=== PATIENT | male | born 1945 | race Caucasian/White ===

== ENCOUNTER 2018-11-12 10:09 | Inpatient (IN) | payer MEDICARE, MEDICAID ==
[2018-11-07 16:19] LABS: BASOPHILS % (AUTO) 0.6 % (0-1); EOSINOPHILS # (AUTO) 0.3 X10'3 (0-0.9); EOSINOPHILS % (AUTO) 4.4 % (0-6); LYMPHOCYTES # (AUTO) 1.6 X10'3 (1.1-4.8); MONOCYTES # (AUTO) 0.8 X10'3 (0-0.9); MONOCYTES % (AUTO) 10.1 % (2-12); NEUTROPHILS # (AUTO) 5.1 X10'3 (1.8-7.7); NEUTROPHILS % (AUTO) 64.9 % (42-75); PRE OP HEMATOCRIT 42.4 % (42.0-52.0); PRE OP HEMOGLOBIN 14.4 g/dL (14.0-17.9); PRE OP PLATELET COUNT 229 X10'3 (140-440); RED BLOOD COUNT 4.37 X10'6 (4.70-6.10); RED CELL DISTRIBUTION WIDTH 13.9 % (11.5-14.5)
[2018-11-07 16:23] LABS: CLARITY,URINE CLEAR (Clear); COLOR,URINE YELLOW (Yellow); GLUCOSE, URINE NEGATIVE (Neg); KETONES,URINE NEGATIVE (Neg); LEUKOCYTE ESTERASE ,URINE NEGATIVE (Neg); NITRITES, URINE NEGATIVE (Neg); OCCULT BLOOD,URINE SMALL (Neg); PROTEIN,URINE TRACE mg/dl (Neg); UROBILINOGEN,URINE 0.2 E.U/dL (0.2-1.0)
[2018-11-07 16:24] LABS: UA COLLECTION TYPE CLN CATCH MIDSTREAM
[2018-11-07 16:30] LABS: MUCUS STRANDS FEW /LPF (Neg); SQUAMOUS EPITHELIAL CELL,UR MANY /LPF (FEW)
[2018-11-07 16:32] LABS: HYALINE CASTS 0-3 /LPF (NEGATIVE)
[2018-11-07 16:34] LABS: BACTERIA,URINE NONE SEEN /HPF (Neg); WBC,URINE 0-4 /HPF (0-4)
[2018-11-07 16:41] LABS: ALBUMIN 3.8 G/DL (3.4-5.0); ALBUMIN/GLOBULIN RATIO 0.8 (1.1-1.5); ALKALINE PHOSPHATASE 105 IU/L (46-116); BLOOD UREA NITROGEN 12 MG/DL (7-18); BUN/CREATININE RATIO 11.7 (5.4-32.0); CALCIUM 8.6 MG/DL (8.5-10.1); CHLORIDE 97 MMOL/L (99-107); CREATININE 1.03 MG/DL (0.60-1.10); PRE OP ALT 23 U/L (30-65); PRE OP ANION GAP 7 (8-16); PRE OP AST 19 U/L (10-37); PRE OP BILIRUB, TOTAL 0.8 MG/DL (0.0-1.0); PRE OP GLUCOSE 91 MG/DL (70-104); PRE OP SODIUM 134 MMOL/L (135-145); TOTAL PROTEIN 8.6 G/DL (6.4-8.2); eGFR 71 ML/MIN
[2018-11-07 17:16] LABS: PRE OP INR 1.1 INR; PRE OP PROTIME 11.1 SECONDS (9.0-12.0)
[2018-11-12] VITALS (27 sets, daily range): BP systolic 124–184; BP diastolic 61–96
[~2018-11-12] VITALS: Ht 182.9 cm; Wt 66.5 kg
[2018-11-12] MEDS: Potassium Cl inj 20 MEQ in ringers solution, lacted 1,000 ML IV SCH ×2 (08:47→16:52)
[~2018-11-12 10:09] MED LIST: CLOP75TA15 PO; EPHE1TAB PO; FLUT1BLS3 INH; GABA-530 PO; GUAI600T45 PO; IPRA4AER IH; ROPI1TAB2 PO; albuterol 2.5 MG/3 ML nebule NEB ONE; cefazolin/dext.iso 2gm/100 ML IV ONE; famotidine 20mg tablet PO ONE
[2018-11-12] MEDS ORDERED: LIDOcaine 1% (10mg/ml) 2ml vial ONE (10:16)
[2018-11-12] MEDS ORDERED: heparin 10,000 units/1 ML INJ ONE (10:36)
[2018-11-12] MEDS ORDERED: ceFAZolin 1000mg inj ONE (10:36)
[2018-11-12] MEDS: ringers solution, lacted 1,000 ML IV SCH ×4 (10:36→17:22)
[2018-11-12] MEDS ORDERED: fentaNYL /PF 50mcg/ml 5ml ampule ONE (11:47)
[2018-11-12] MEDS ORDERED: rocuronium 10mg/ml inj IV ONE (11:47)
[2018-11-12] MEDS ORDERED: MIDAZolam 5mg/5ml vial ONE (11:47)
[2018-11-12] MEDS ORDERED: propofol inj 20 ML IV ONE (11:47)
[2018-11-12] MEDS ORDERED: sevoflurane 250ml liquid IH ONE (11:48)
[2018-11-12] MEDS ORDERED: ePHEDrine 50MG/ML INJ. ONE (12:34)
[2018-11-12] MEDS ORDERED: heparin 1,000unit/ml 10ml vial 10 ML ONE (12:34)
[2018-11-12] MEDS ORDERED: ringers solution, lacted 1,000 ML IV SCH (13:46)
[2018-11-12] MEDS ORDERED: meperidine/PF 25mg/ml syringe IV PRN ×2 (13:50)
[2018-11-12] MEDS ORDERED: ondansetron/PF 4mg/2ml inj IV PRN ×3 (13:50→17:50)
[2018-11-12] MEDS ORDERED: morphine 4 MG/ML inj SYRINge IV PRN ×3 (13:50→17:55)
[2018-11-12] MEDS ORDERED: proCHLORperazine 10 MG/2 ml inj IV PRN (13:50)
[2018-11-12] MEDS ORDERED: neostigmine methylsulfate 1 MG/ML 10ml vial ONE (13:56)
[2018-11-12] MEDS ORDERED: glycopyrrolate 0.2mg/ml inj ONE (13:56)
[2018-11-12] MEDS ORDERED: labetalol 20mg/4ml (5mg/ml) syringe IV ONE (13:59)
--- NOTE | 2018-11-12 14:20 | NUR ---
Received from OR via BED, accompanied by Anesthesiologist DR MANUEL and report given by Anesthesiolgist. PATIENT A&OX4, DENIES PAIN, V/S WNL, NEUROVASCULAR CHECKS INTACT, 20G PIV RUE, SCD ON, PROVENA DRESSING LEFT GROIN CDI AND ISLAND DRESSING TO ABDOMEN CDI, ART LINE TO RUE, CENTRAL LINE TO RIGHT NECK TRIPLE LUMEN, F/C DRAINIANG CLEAR YELLOW URINE.
[2018-11-12] MEDS: meperidine/PF 25mg/ml syringe IV PRN ×2 (14:30→15:27)
[2018-11-12] MEDS ORDERED: guaiFENesin ER 600mg tablet PO PRN (14:40)
[2018-11-12] MEDS ORDERED: ipratropium/albuterol 3ml nebule IH PRN (14:50)
[2018-11-12] MEDS: albuterol 2.5 MG/3 ML nebule NEB SCH ×2 (15:00→19:59)
--- NOTE | 2018-11-12 16:30 | NUR ---
PATIENT WAKES UP, ORIENTED X3, DENIES PAIN, V/S WNL, NEUROVASCULAR CHECKS INTACT, 20G PIV RUE, SCD ON, PROVENA DRESSING LEFT GROIN CDI AND ISLAND DRESSING TO ABDOMEN CDI, ART LINE TO RUE, CENTRAL LINE TO RIGHT NECK TRIPLE LUMEN, F/C DRAINING CLEAR YELLOW URINE. TRANSFERED TO ICU WITH ALL BELONGINGS AND REPORT GIVEN TO IMAGING SCIENCE PROFESSOR WHO HAS TAKEN OVER PATIENT CARE.
[2018-11-12] MEDS: morphine 4 MG/ML inj SYRINge IV PRN ×2 (16:49→20:58)
[2018-11-12] MEDS: ceFAZolin 1GM/D5W- ADD-VANTAGE 50 ML IV SCH (16:49)
[2018-11-12] MEDS ORDERED: hydrALAZINE 20mg/ml inj. IV PRN (17:15)
--- NOTE | 2018-11-12 17:44 | NUR ---
Received patient from recovery. Vital signs stable, pt. painful. Addendum: 11/12/18 at 1745 by Xi Moeller RN at 1630
[2018-11-12] MEDS ORDERED: HYDROcodone/acetaminophen 10/325mg tab PO PRN (17:55)
[2018-11-12] MEDS: HYDROcodone/acetaminophen 10/325mg tab PO PRN (19:24)
[2018-11-12] MEDS: budesonide 0.5mg/2ml UD nebule IH SCH (19:59)
[2018-11-12] MEDS: hydrALAZINE 20mg/ml inj. IV PRN (20:27)
[2018-11-12] MEDS: gabapentin 100mg capsule PO SCH (20:30)
[2018-11-12] MEDS: ROPINIRole 1mg tablet PO SCH (20:30)
[2018-11-12] MEDS: ondansetron/PF 4mg/2ml inj IV PRN (20:58)
[2018-11-13] VITALS (16 sets, daily range): BP systolic 116–179; BP diastolic 60–92
[2018-11-13] MEDS: ceFAZolin 1GM/D5W- ADD-VANTAGE 50 ML IV SCH ×2 (00:08→07:26)
[2018-11-13] MEDS: ringers solution, lacted 1,000 ML IV SCH ×4 (03:23→20:27)
[2018-11-13] MEDS: morphine 4 MG/ML inj SYRINge IV PRN ×5 (03:25→23:35)
[2018-11-13 05:21] LABS: BASOPHILS % (AUTO) 0.1 % (0-1); EOSINOPHILS # (AUTO) 0.1 X10'3 (0-0.9); EOSINOPHILS % (AUTO) 0.8 % (0-6); HEMOGLOBIN 12.8 g/dl (14.0-17.9); LYMPHOCYTES % (AUTO) 9.2 % (21-51); MEAN CORPUSCULAR HEMOGLOBIN 33.2 PG (27.0-31.0); MEAN CORPUSCULAR HGB CONC 34.7 g/dL (33.0-36.5); MEAN CORPUSCULAR VOLUME 95.7 FL (78-98); MEAN PLATELET VOLUME 6.7 FL (7.4-10.4); MONOCYTES # (AUTO) 1.2 X10'3 (0-0.9); MONOCYTES % (AUTO) 10.5 % (2-12); NEUTROPHILS # (AUTO) 8.7 X10'3 (1.8-7.7); NEUTROPHILS % (AUTO) 79.4 % (42-75); PLATELET COUNT 173 X10'3 (140-440); RED BLOOD COUNT 3.87 X10'6 (4.70-6.10); RED CELL DISTRIBUTION WIDTH 12.9 % (11.5-14.5)
[2018-11-13 05:34] LABS: ALBUMIN 3.1 G/DL (3.4-5.0); ANION GAP 8 (8-16); BLOOD UREA NITROGEN 13 MG/DL (7-18); BUN/CREATININE RATIO 14.8 (5.4-32.0); CALCIUM 7.9 MG/DL (8.5-10.1); CHLORIDE 95 MMOL/L (99-107); CREATININE 0.88 MG/DL (0.60-1.10); GLUCOSE 112 MG/DL (70-104); SODIUM 130 MMOL/L (135-145); eGFR 85 ML/MIN
[2018-11-13] MEDS: hydrALAZINE 20mg/ml inj. IV PRN (06:40)
[2018-11-13] MEDS: budesonide 0.5mg/2ml UD nebule IH SCH ×2 (06:58→20:15)
[2018-11-13] MEDS: albuterol 2.5 MG/3 ML nebule NEB SCH ×4 (06:58→20:15)
[2018-11-13] MEDS: ondansetron/PF 4mg/2ml inj IV PRN ×2 (07:26→18:50)
[2018-11-13] MEDS: clopidogrel 75mg tablet PO SCH (07:29)
[2018-11-13] MEDS: enoxaparin 40mg/0.4ml syringe SQ SCH (07:29)
[2018-11-13] MEDS: EPHEDRINE SULFATE PO SCH (07:47)
[2018-11-13] MEDS: GUAIFENESIN PO SCH (07:47)
[2018-11-13] MEDS ORDERED: non-formulary drug (Fluticasone/Vilanterol (Breo Ellipta 200-25 Mcg INH) 1 PUFF) INH SCH (08:00)
[2018-11-13] MEDS: HYDROcodone/acetaminophen 10/325mg tab PO PRN ×3 (10:47→21:29)
[2018-11-13] MEDS ORDERED: pantoprazole 40mg Tablet.DR PO ONE (11:00)
--- NOTE | 2018-11-13 12:20 | NUR ---
ART line and CVL d/c per hospital policy without incident. Hemostasis achieved. Teresa d/c per MD order.
--- NOTE | 2018-11-13 13:00 | NUR ---
Pt s/p AVR will need high protein ed once stable post-op. Addendum: 11/13/18 at [address] Amended: Links added.
--- NOTE | 2018-11-13 13:45 | NUR ---
Problems reprioritized. Patient report given, questions answered & plan of care reviewed with Eunice MANLEY. Patient transferred to surgical floor 348NB will all belongings sent with patient. Family and SO at bedside. Patient oriented to new room, TV and call light.
--- NOTE | 2018-11-13 13:50 | NUR ---
Patient arrived to 348B with family at bedside. Patient arrived in a recliner chair. Patient stable and alert. I will continue to monitor
--- NOTE | 2018-11-13 17:30 | NUR ---
PATIENT HAS NOT VOIDED SINCE THE BECK CATH WAS REMOVED. I BLADDER SCANNED HIM AND HE HAD 308 IN HIS BLADDER. I CALLED DR. ALONSO AND GOT AN ORDER TO PLACE A BECK AND LEAVE IT IN. I REPORTED THIS INFORMATION TO THE NOC RN.
--- NOTE | 2018-11-13 18:10 | NUR ---
Problems reprioritized. Patient report given, MACKENZIE MANLEY questions answered & plan of care reviewed with . PATIENT IN BED RESTING WITH FAMILY AT BEDSIDE.
--- NOTE | 2018-11-13 20:18 | NUR ---
Teresa Cath place tonight for acute retention. Patient tolerated well under sterile technique. Return 300ml of clear yellow urine.
[2018-11-13] MEDS: gabapentin 100mg capsule PO SCH (21:28)
[2018-11-13] MEDS: ROPINIRole 1mg tablet PO SCH (21:28)
[2018-11-14] VITALS: BP 142/73
[2018-11-14] MEDS: HYDROcodone/acetaminophen 10/325mg tab PO PRN ×2 (03:49→22:32)
[2018-11-14] MEDS: ringers solution, lacted 1,000 ML IV SCH ×3 (03:51→21:13)
[2018-11-14] MEDS: ondansetron/PF 4mg/2ml inj IV PRN ×2 (04:43→10:52)
[2018-11-14] MEDS: morphine 4 MG/ML inj SYRINge IV PRN ×3 (04:44→20:11)
[2018-11-14 05:49] LABS: BASOPHILS % (AUTO) 0 % (0-1); EOSINOPHILS % (AUTO) 0 % (0-6); HEMATOCRIT 33.8 % (42.0-52.0); HEMOGLOBIN 11.4 g/dl (14.0-17.9); LYMPHOCYTES # (AUTO) 0.8 X10'3 (1.1-4.8); LYMPHOCYTES % (AUTO) 5.3 % (21-51); MEAN CORPUSCULAR HEMOGLOBIN 32.7 PG (27.0-31.0); MEAN CORPUSCULAR HGB CONC 33.9 g/dL (33.0-36.5); MEAN CORPUSCULAR VOLUME 96.4 FL (78-98); MEAN PLATELET VOLUME 6.9 FL (7.4-10.4); MONOCYTES # (AUTO) 1.3 X10'3 (0-0.9); MONOCYTES % (AUTO) 8.6 % (2-12); NEUTROPHILS # (AUTO) 13.2 X10'3 (1.8-7.7); NEUTROPHILS % (AUTO) 86.1 % (42-75); PLATELET COUNT 171 X10'3 (140-440); WHITE BLOOD COUNT 15.3 X10'3 (4.5-11.0)
[2018-11-14 05:50] LABS: ALBUMIN 2.6 G/DL (3.4-5.0); ANION GAP 6 (8-16); BLOOD UREA NITROGEN 29 MG/DL (7-18); BUN/CREATININE RATIO 36.3 (5.4-32.0); CALCIUM 7.7 MG/DL (8.5-10.1); CHLORIDE 95 MMOL/L (99-107); GLUCOSE 133 MG/DL (70-104); SODIUM 131 MMOL/L (135-145); eGFR > 90 ML/MIN
[2018-11-14 07:00] VITALS: BP 138/64
[2018-11-14] MEDS: albuterol 2.5 MG/3 ML nebule NEB SCH ×4 (07:08→20:33)
[2018-11-14] MEDS: budesonide 0.5mg/2ml UD nebule IH SCH ×2 (07:08→20:33)
[2018-11-14] MEDS: enoxaparin 40mg/0.4ml syringe SQ SCH (07:38)
[2018-11-14] MEDS: clopidogrel 75mg tablet PO SCH (07:38)
[2018-11-14] MEDS: pantoprazole 40mg Tablet.DR PO SCH (07:38)
[2018-11-14] MEDS: EPHEDRINE SULFATE PO SCH ×2 (07:39→09:56)
[2018-11-14] MEDS: GUAIFENESIN PO SCH ×2 (07:39→09:56)
[2018-11-14 12:00] VITALS: BP 125/62
--- NOTE | 2018-11-14 18:39 | NUR ---
1500 SVN treatment triaged
[2018-11-14 19:00] VITALS: BP 102/51
[2018-11-14] MEDS: gabapentin 100mg capsule PO SCH (21:14)
[2018-11-14] MEDS: ROPINIRole 1mg tablet PO SCH (21:14)
[2018-11-15] VITALS: BP 141/63
[2018-11-15] MEDS: morphine 4 MG/ML inj SYRINge IV PRN (05:22)
[2018-11-15] MEDS: ringers solution, lacted 1,000 ML IV SCH (05:25)
--- NOTE | 2018-11-15 06:28 | NUR ---
Problems reprioritized. Patient report given, questions answered & plan of care reviewed with ISAC MANLEY.
[2018-11-15 07:02] LABS: BASOPHILS % (AUTO) 0.2 % (0-1); EOSINOPHILS % (AUTO) 0.4 % (0-6); HEMATOCRIT 28.7 % (42.0-52.0); HEMOGLOBIN 9.8 g/dl (14.0-17.9); LYMPHOCYTES # (AUTO) 0.8 X10'3 (1.1-4.8); LYMPHOCYTES % (AUTO) 7.7 % (21-51); MEAN CORPUSCULAR HEMOGLOBIN 33.3 PG (27.0-31.0); MEAN CORPUSCULAR HGB CONC 34.1 g/dL (33.0-36.5); MEAN CORPUSCULAR VOLUME 97.7 FL (78-98); MEAN PLATELET VOLUME 7.1 FL (7.4-10.4); MONOCYTES # (AUTO) 1.2 X10'3 (0-0.9); MONOCYTES % (AUTO) 11.8 % (2-12); NEUTROPHILS # (AUTO) 8.2 X10'3 (1.8-7.7); NEUTROPHILS % (AUTO) 79.9 % (42-75); PLATELET COUNT 136 X10'3 (140-440); RED BLOOD COUNT 2.94 X10'6 (4.70-6.10); RED CELL DISTRIBUTION WIDTH 13.6 % (11.5-14.5); WHITE BLOOD COUNT 10.2 X10'3 (4.5-11.0)
[2018-11-15 07:10] LABS: ALBUMIN 2.5 G/DL (3.4-5.0); ANION GAP 6 (8-16); BLOOD UREA NITROGEN 15 MG/DL (7-18); BUN/CREATININE RATIO 18.3 (5.4-32.0); CALCIUM 7.9 MG/DL (8.5-10.1); CHLORIDE 97 MMOL/L (99-107); CREATININE 0.82 MG/DL (0.60-1.10); GLUCOSE 100 MG/DL (70-104); POTASSIUM 3.6 MMOL/L (3.5-5.1); SODIUM 133 MMOL/L (135-145); TOTAL CARBON DIOXIDE 30.1 MMOL/L (24-32); eGFR > 90 ML/MIN
[2018-11-15] MEDS: budesonide 0.5mg/2ml UD nebule IH SCH ×2 (07:43→20:00)
[2018-11-15] MEDS: albuterol 2.5 MG/3 ML nebule NEB SCH ×4 (07:43→20:00)
[2018-11-15 08:00] VITALS: BP 151/87
[2018-11-15] MEDS: EPHEDRINE SULFATE PO SCH (08:00)
[2018-11-15] MEDS: GUAIFENESIN PO SCH (08:00)
[2018-11-15] MEDS: enoxaparin 40mg/0.4ml syringe SQ SCH (08:19)
[2018-11-15] MEDS: pantoprazole 40mg Tablet.DR PO SCH (08:19)
[2018-11-15] MEDS: clopidogrel 75mg tablet PO SCH (08:19)
[2018-11-15] MEDS: HYDROcodone/acetaminophen 10/325mg tab PO PRN ×4 (08:26→23:27)
[2018-11-15 12:00] VITALS: BP 155/77
--- NOTE | 2018-11-15 18:19 | NUR ---
Problems reprioritized. Patient report given, questions answered & plan of care reviewed with Joce MANLEY.
--- NOTE | 2018-11-15 18:20 | NUR ---
Patient in room [facility]. I have received report from ISAC MANLEY and had the opportunity to ask questions and assume patient care.
[2018-11-15 19:00] VITALS: BP 125/62
[2018-11-15] MEDS: gabapentin 100mg capsule PO SCH (21:09)
[2018-11-15] MEDS: ROPINIRole 1mg tablet PO SCH (21:09)
[2018-11-16] VITALS: BP 103/59
[2018-11-16 05:18] LABS: BASOPHILS % (AUTO) 0.2 % (0-1); EOSINOPHILS # (AUTO) 0.3 X10'3 (0-0.9); EOSINOPHILS % (AUTO) 3.4 % (0-6); HEMATOCRIT 28.1 % (42.0-52.0); HEMOGLOBIN 9.8 g/dl (14.0-17.9); LYMPHOCYTES # (AUTO) 0.8 X10'3 (1.1-4.8); MEAN CORPUSCULAR HEMOGLOBIN 33.5 PG (27.0-31.0); MEAN CORPUSCULAR HGB CONC 34.8 g/dL (33.0-36.5); MEAN CORPUSCULAR VOLUME 96.2 FL (78-98); MEAN PLATELET VOLUME 6.8 FL (7.4-10.4); MONOCYTES % (AUTO) 11.6 % (2-12); NEUTROPHILS # (AUTO) 6.3 X10'3 (1.8-7.7); NEUTROPHILS % (AUTO) 74.8 % (42-75); PLATELET COUNT 165 X10'3 (140-440); RED BLOOD COUNT 2.92 X10'6 (4.70-6.10); RED CELL DISTRIBUTION WIDTH 13.4 % (11.5-14.5); WHITE BLOOD COUNT 8.4 X10'3 (4.5-11.0)
[2018-11-16 05:23] LABS: ALBUMIN 2.5 G/DL (3.4-5.0); ANION GAP 6 (8-16); BLOOD UREA NITROGEN 10 MG/DL (7-18); CHLORIDE 93 MMOL/L (99-107); CREATININE 0.91 MG/DL (0.60-1.10); GLUCOSE 96 MG/DL (70-104); POTASSIUM 3.5 MMOL/L (3.5-5.1); SODIUM 131 MMOL/L (135-145); TOTAL CARBON DIOXIDE 31.7 MMOL/L (24-32); eGFR 82 ML/MIN
[2018-11-16] MEDS: ringers solution, lacted 1,000 ML IV SCH (05:44)
[2018-11-16] MEDS: HYDROcodone/acetaminophen 10/325mg tab PO PRN ×5 (05:59→23:05)
--- NOTE | 2018-11-16 06:15 | NUR ---
Problems reprioritized. Patient report given, questions answered & plan of care reviewed with ISAC MANLEY.
--- NOTE | 2018-11-16 06:39 | NUR ---
Problems reprioritized. Patient report given, questions answered & plan of care reviewed with Joce MANLEY.
[2018-11-16 08:00] VITALS: BP_SYST 145; BP_SYST 148; BP_DIAS 69; BP_DIAS 81
[2018-11-16] MEDS: GUAIFENESIN PO SCH (08:00)
[2018-11-16] MEDS: EPHEDRINE SULFATE PO SCH (08:00)
[2018-11-16] MEDS: pantoprazole 40mg Tablet.DR PO SCH (08:05)
[2018-11-16] MEDS: clopidogrel 75mg tablet PO SCH (08:05)
[2018-11-16] MEDS: enoxaparin 40mg/0.4ml syringe SQ SCH (08:06)
[2018-11-16] MEDS: budesonide 0.5mg/2ml UD nebule IH SCH ×2 (08:38→19:18)
[2018-11-16] MEDS: albuterol 2.5 MG/3 ML nebule NEB SCH ×4 (08:38→19:18)
--- NOTE | 2018-11-16 13:38 | NUR ---
O2 Sat at rest on room air: 88% If below 89%: Recovery O2 Sat at rest on 2 LPM: 90%: 94% via nasal cannula No further documentation is necessary. If O2 Sat did not drop below 89% on room air,ambulate patient on room air. O2 Sat while ambulating on room air:___% Recovery O2 Sat while ambulating on ___LPM:___% No further documentation is necessary. If patient does not drop below 89% while ambulating, he/she does not qualify for home O2.
--- NOTE | 2018-11-16 18:34 | NUR ---
Problems reprioritized. Patient report given, questions answered & plan of care reviewed with Preeti MANLEY.
--- NOTE | 2018-11-16 18:55 | NUR ---
Pt family in room states pt had 3 bites of Big Mac. Explained to family that food cannot be brought in as pt is on special diet due to surgery. Family states he is not the one who brought it in. Explained to pt and family the importance of adhering to diet.
[2018-11-16 20:00] VITALS: BP 115/62
[2018-11-16] MEDS: ROPINIRole 1mg tablet PO SCH (20:27)
[2018-11-16] MEDS: gabapentin 100mg capsule PO SCH (20:27)
--- NOTE | 2018-11-16 20:44 | NUR ---
Removed prevena from pt left leg. Attempted to seal dressing with tegaderm. Prevena would not seal. Removed and placed border [facility]. Will continue to monitor for drainage.
--- NOTE | 2018-11-16 23:13 | NUR ---
Dressing change to left groin site.
[2018-11-17] VITALS (8 sets, daily range): BP systolic 116–160; BP diastolic 65–79
[2018-11-17 05:12] LABS: BASOPHILS % (AUTO) 0.6 % (0-1); EOSINOPHILS # (AUTO) 0.5 X10'3 (0-0.9); EOSINOPHILS % (AUTO) 7.5 % (0-6); HEMATOCRIT 27.3 % (42.0-52.0); HEMOGLOBIN 9.4 g/dl (14.0-17.9); LYMPHOCYTES # (AUTO) 0.9 X10'3 (1.1-4.8); LYMPHOCYTES % (AUTO) 13.4 % (21-51); MEAN CORPUSCULAR HEMOGLOBIN 33.4 PG (27.0-31.0); MEAN CORPUSCULAR HGB CONC 34.3 g/dL (33.0-36.5); MEAN CORPUSCULAR VOLUME 97.3 FL (78-98); MEAN PLATELET VOLUME 6.8 FL (7.4-10.4); MONOCYTES % (AUTO) 15.1 % (2-12); NEUTROPHILS # (AUTO) 4.2 X10'3 (1.8-7.7); NEUTROPHILS % (AUTO) 63.4 % (42-75); PLATELET COUNT 189 X10'3 (140-440); RED CELL DISTRIBUTION WIDTH 13.3 % (11.5-14.5); WHITE BLOOD COUNT 6.7 X10'3 (4.5-11.0)
[2018-11-17] MEDS: HYDROcodone/acetaminophen 10/325mg tab PO PRN ×2 (05:23→20:19)
--- NOTE | 2018-11-17 05:24 | NUR ---
Pt c/o right great toe pain. Distal toe appears purple and is cooler than remaining toes and foot. Dopplered pulses, both posterial tibial and dorsalis pedis pulses strong. Administered pain medicaiton and advised pt to preform movements with the foot. Will continue to monitor.
[2018-11-17 05:25] LABS: ALBUMIN 2.4 G/DL (3.4-5.0); ANION GAP 4 (8-16); BLOOD UREA NITROGEN 9 MG/DL (7-18); BUN/CREATININE RATIO 9.9 (5.4-32.0); CALCIUM 7.8 MG/DL (8.5-10.1); CHLORIDE 95 MMOL/L (99-107); CREATININE 0.91 MG/DL (0.60-1.10); GLUCOSE 90 MG/DL (70-104); POTASSIUM 3.6 MMOL/L (3.5-5.1); SODIUM 133 MMOL/L (135-145); TOTAL CARBON DIOXIDE 34.1 MMOL/L (24-32); eGFR 82 ML/MIN
[2018-11-17] MEDS: albuterol 2.5 MG/3 ML nebule NEB SCH ×4 (05:32→19:28)
[2018-11-17] MEDS: budesonide 0.5mg/2ml UD nebule IH SCH ×2 (05:32→19:28)
--- NOTE | 2018-11-17 06:20 | NUR ---
Patient in room [facility] 348. I have received report from Preeti Goldstein RN and had the opportunity to ask questions and assume patient care.
--- NOTE | 2018-11-17 06:28 | NUR ---
Problems reprioritized. Patient report given, questions answered & plan of care reviewed with SINDHU Lott.
[2018-11-17] MEDS: pantoprazole 40mg Tablet.DR PO SCH (07:57)
[2018-11-17] MEDS: enoxaparin 40mg/0.4ml syringe SQ SCH (07:57)
[2018-11-17] MEDS: clopidogrel 75mg tablet PO SCH (07:57)
[2018-11-17] MEDS: GUAIFENESIN PO SCH (11:36)
[2018-11-17] MEDS: EPHEDRINE SULFATE PO SCH (11:36)
--- NOTE | 2018-11-17 11:43 | NUR ---
O2 Sat at rest on room air: 86% If below 89%: Recovery O2 Sat at rest on 3 LPM 94% via Nasal cannula (mask/nasal cannula, etc..) No further documentation is necessary.
[2018-11-17] MEDS ORDERED: magnesium hydroxide 30ml (MOM) UD suspension PO PRN (15:20)
--- NOTE | 2018-11-17 18:18 | NUR ---
Problems reprioritized. Patient report given, questions answered & plan of care reviewed with Nohelia RN.
--- NOTE | 2018-11-17 18:30 | NUR ---
Patient in room [facility] 348. I have received report from SINDHU Johnson and had the opportunity to ask questions and assume patient care.
[2018-11-17] MEDS: gabapentin 100mg capsule PO SCH (21:10)
[2018-11-17] MEDS: ROPINIRole 1mg tablet PO SCH (21:10)
[2018-11-18] MEDS: HYDROcodone/acetaminophen 10/325mg tab PO PRN ×3 (01:52→13:19)
--- NOTE | 2018-11-18 06:25 | NUR ---
Patient in room [facility] 348. I have received report from SINDHU Pozo and had the opportunity to ask questions and assume patient care.
--- NOTE | 2018-11-18 06:30 | NUR ---
report given to SINDHU Johnson
[2018-11-18 07:00] VITALS: BP 126/72
--- NOTE | 2018-11-18 07:00 | NUR ---
O2 Sat at rest on room air: 84% If below 89%: Recovery O2 Sat at rest on 3 LPM 94% via nasal cannula(mask/nasal cannula, etc..) No further documentation is necessary.
[2018-11-18] MEDS: albuterol 2.5 MG/3 ML nebule NEB SCH ×3 (07:19→15:08)
[2018-11-18] MEDS: budesonide 0.5mg/2ml UD nebule IH SCH (07:19)
[2018-11-18] MEDS: pantoprazole 40mg Tablet.DR PO SCH (07:55)
[2018-11-18] MEDS: enoxaparin 40mg/0.4ml syringe SQ SCH (07:56)
[2018-11-18] MEDS: EPHEDRINE SULFATE PO SCH (07:56)
[2018-11-18] MEDS: GUAIFENESIN PO SCH (07:56)
[2018-11-18] MEDS: clopidogrel 75mg tablet PO SCH (07:56)
[2018-11-18 11:00] VITALS: BP 119/65
--- NOTE | 2018-11-18 14:36 | NUR ---
Initial: Pt s/p left aortofemoral bypass graft seen at bedside given written and verbal protein education with RD contact information. Pt endorses a good appetite and denies food allergies, difficulty chewing/swallowing, or constipation/diarrhea. Documented PO intake averaging 50% on low fiber/soft diet. Pt agreeable to chocolate Ensure with meals, MD king, d/w dietary. [facility] 11/18. Will continue to follow. Recommendations: 1) Continue with low fiber/soft diet; advance to regular as medically indicated 2) Chocolate Ensure high protein TID 3) Wt per rx Addendum: 11/18/18 at [address] Amended: Links added.
--- NOTE | 2018-11-18 17:35 | NUR ---
Patient discharged. PIV removed: cath tip intact. Extensive education given to patient and regarding the home wound vac. I reinforced his Prevena dressing and gave his the extra to reinforce if she needs to. Patient will follow up with Dr. Carter in one week. Patient was also provided with home O2. Patient was wheeled down by staff.
[2018-11-18] MEDS ORDERED: lactose-reduced food (Ensure High Protein) 237ml bottle PO SCH (18:00)
== END 2018-11-18 17:37 | disposition home health service (06) | DRG 271 ==
LOC: PAS 10:09 → EDSTATUS 14:00 → ICU 2S 17:44 → PAS 17:44 → ICU 2S 17:48 → SUR 3N 11-13 14:36
PROVIDERS: ADMIT Surgery; ATTEND Surgery
PROC: 04100JJ Bypass Abdominal Aorta to Left Femoral Artery with Synthetic Substitute, Open Approach (ICD-10-PCS; 2018-11-12)
PROC: B543ZZA Ultrasonography of Right Jugular Veins, Guidance (ICD-10-PCS; 2018-11-12)
PROC: 05HM33Z Insertion of Infusion Device into Right Internal Jugular Vein, Percutaneous Approach (ICD-10-PCS; principal; 2018-11-12 11:48)
DX: I70.212 Atherosclerosis of native arteries of extremities with intermittent claudication, left leg (principal); E87.1 Hypo-osmolality and hyponatremia; I74.09 Other arterial embolism and thrombosis of abdominal aorta; J44.9 Chronic obstructive pulmonary disease, unspecified; R33.9 Retention of urine, unspecified; R09.02 Hypoxemia; F17.210 Nicotine dependence, cigarettes, uncomplicated; Z79.899 Other long term (current) drug therapy; Z82.49 Family history of ischemic heart disease and other diseases of the circulatory system
CPT/HCPCS: 36415; 71045; 71046; 80048; 80053; 81001; 82948; 85025; 85610; 85730; 86885; 86900; 86901; 86920; 87070; 93005; 94640; 94760; 97110; 97116; 97161; 97530; A7000; C1758; C1768; G0378; J0360; J0690; J1644; J1650; J2175; J2250; J2270; J2405; J2704; J2710; J3010; J3480; J3490; J7030; J7120; J7626

== ENCOUNTER 2018-11-24 09:45 | Outpatient (CLI) | payer MEDICARE, MEDICAID ==
[~2018-11-24 09:45] MED LIST changes: -albuterol 2.5 MG/3 ML nebule NEB ONE; -cefazolin/dext.iso 2gm/100 ML IV ONE; -famotidine 20mg tablet PO ONE
--- NOTE | 2018-11-24 12:00 | NUR ---
Patient arrived via wheelchair accompanied by his Sandie from [facility] and was admitted to outpatient wound care for physician visit with Abdulkadir Chavira MD. Dressing removed, wound cleansed. New patient assessment completed with review of patient's medical history and current medications. 1140 - Dr. Chavira at bedside accompanied by RN. Wound assessed by MD; new orders written. Plan of care discussed with patient. Dressings placed per MD orders. Patient instructed on the signs and symptoms of infection and to call the Wound Center if any occur or to go to the ED if we are closed: Increased pain in wound Increase in drainage from the wound Redness in the skin surrounding the wound Bleeding from the wound Temperature of 101 or greater Patient instructed that the weight of their body puts a large amount of pressure on their wounds. This pressure keeps the new tissue from growing and inhibits new blood vessels from forming. Explained that, if they continue to bear weight on a body part that has a wound, the time it takes to heal the wound increases, the wound may get worse or the wound may not heal at all. Patient and verbalized understanding of all discharge instructions and plan of care and patient is driven via wheelchair by his out to [facility] and is in stable condition with no sign or symptom of distress at time of discharge.
[2018-11-24] MEDS ORDERED: HYDR-4353 PO (12:07)
== END 2018-11-24 12:39 | disposition home or self-care (01) ==
LOC: WOUND CARE 09:45
PROVIDERS: ATTEND Surgery
DX: T81.89XD Other complications of procedures, not elsewhere classified, subsequent encounter (principal); L98.492 Non-pressure chronic ulcer of skin of other sites with fat layer exposed; J44.9 Chronic obstructive pulmonary disease, unspecified; F17.210 Nicotine dependence, cigarettes, uncomplicated; Z79.899 Other long term (current) drug therapy; Z89.029 Acquired absence of unspecified finger(s); Y83.8 Other surgical procedures as the cause of abnormal reaction of the patient, or of later complication, without mention of misadventure at the time of the procedure
CPT/HCPCS: A6223; G0463; A6021; A6213

== ENCOUNTER 2018-12-01 10:56 | Day surgery (SDC) | payer MEDICARE, MEDICAID ==
[~2018-12-01 10:56] MED LIST changes: +HYDR-4353 PO
[2018-12-01] MEDS ORDERED: LIDOcaine/PRILOcaine 5gm cream TP ONE (11:59)
--- NOTE | 2018-12-01 12:30 | NUR ---
Patient arrived via wheelchair accompanied by his from [facility] and was admitted to outpatient wound care for physician visit with Abdulkadir Chavira MD. Dressing removed, wound cleansed and Emla cream applied per order. Patient assessed for changes in conditions, medications and medical history. 1150 - Dr. Chavira at bedside accompanied by RN. Wound assessed, time out performed by MD/RN. Wound debrided as detailed in the physician progress/procedure note. Plan of care discussed with patient. Dressings placed per MD orders. Patient instructed on the signs and symptoms of infection and to call the Wound Center if any occur or to go to the ED if we are closed: Increased pain in wound Increase in drainage from the wound Redness in the skin surrounding the wound Bleeding from the wound Temperature of 101 or greater Patient instructed that the weight of their body puts a large amount of pressure on their wounds. This pressure keeps the new tissue from growing and inhibits new blood vessels from forming. Explained that, if they continue to bear weight on a body part that has a wound, the time it takes to heal the wound increases, the wound may get worse or the wound may not heal at all. Patient verbalized understanding of all discharge instructions and plan of care and exited via wheelchair accompanied by his out to [facility] in stable condition with no sign or symptom of distress at time of discharge.
== END 2018-12-01 12:20 | disposition home or self-care (01) ==
LOC: WOUND CARE 10:56
PROVIDERS: ATTEND Surgery
DX: T81.89XD Other complications of procedures, not elsewhere classified, subsequent encounter (principal); L98.492 Non-pressure chronic ulcer of skin of other sites with fat layer exposed; J44.9 Chronic obstructive pulmonary disease, unspecified; F17.210 Nicotine dependence, cigarettes, uncomplicated; Z79.899 Other long term (current) drug therapy; Z89.029 Acquired absence of unspecified finger(s); Y83.8 Other surgical procedures as the cause of abnormal reaction of the patient, or of later complication, without mention of misadventure at the time of the procedure
CPT/HCPCS: A6021; A6206; A6212

== ENCOUNTER 2018-12-12 09:30 | Day surgery (SDC) | payer MEDICARE, MEDICAID ==
[2018-12-12] MEDS ORDERED: LIDOcaine/PRILOcaine 5gm cream TP ONE (10:22)
--- NOTE | 2018-12-12 11:30 | NUR ---
Patient arrived via wheelchair from [facility] accompanied by his and was admitted to outpatient wound care for physician visit with Abdulkadir Chavira MD. Dressing removed, wound cleansed and Emla cream applied per order. Patient assessed for changes in conditions, medications and medical history. 1035 - Dr. Chavira at bedside accompanied by RN. Wound assessed, time out performed by MD/RN. Wound debrided as detailed in the physician progress/procedure note. Plan of care discussed with patient. Dressings placed per MD orders. Pt instructed that they should not be disconnected from suction for more than 2 hours at a time. If they are not able to get the suction back on they need to remove the dressing and take all of the foam out of the wound, place hydrogel gauze on/in the wound, and change the dressing daily until someone can replace the dressing. Pt instructed to call the Wound Center or their Home Health Agency immediately if they notice a change in the color or amount of the fluid in the canister, their wound looks more red than usual or has a foul smell, the skin around their wound looks reddened or irritated, the dressing feels or appears loose, they experience pain or the alarm will not turn off. Pt instructed to call 911 or go to the ED if their canister fills rapidly with blood. Patient instructed on the signs and symptoms of infection and to call the Wound Center if any occur or to go to the ED if we are closed: Increased pain in wound Increase in drainage from the wound Redness in the skin surrounding the wound Bleeding from the wound Temperature of 101 or greater Patient instructed that the weight of their body puts a large amount of pressure on their wounds. This pressure keeps the new tissue from growing and inhibits new blood vessels from forming. Explained that, if they continue to bear weight on a body part that has a wound, the time it takes to heal the wound increases, the wound may get worse or the wound may not heal at all. Patient and his verbalized understanding of all discharge instructions and plan of care and patient is taken via wheelchair by out to [facility] in stable condition with no sign or symptom of distress at time of discharge.
== END 2018-12-12 11:45 | disposition home or self-care (01) ==
LOC: WOUND CARE 09:30
PROVIDERS: ATTEND Surgery
DX: T81.89XD Other complications of procedures, not elsewhere classified, subsequent encounter (principal); L98.492 Non-pressure chronic ulcer of skin of other sites with fat layer exposed; I83.013 Varicose veins of right lower extremity with ulcer of ankle; L97.311 Non-pressure chronic ulcer of right ankle limited to breakdown of skin; J44.9 Chronic obstructive pulmonary disease, unspecified; F17.210 Nicotine dependence, cigarettes, uncomplicated; Z79.899 Other long term (current) drug therapy; Z89.029 Acquired absence of unspecified finger(s); Y83.8 Other surgical procedures as the cause of abnormal reaction of the patient, or of later complication, without mention of misadventure at the time of the procedure
CPT/HCPCS: 97597; A4456; A6021; A6206

== ENCOUNTER 2018-12-19 09:30 | Day surgery (SDC) | payer MEDICARE, MEDICAID ==
[2018-12-19] MEDS ORDERED: LIDOcaine/PRILOcaine 5gm cream TP ONE (10:11)
--- NOTE | 2018-12-19 13:38 | NUR ---
Patient ambulated independently from [facility] and was admitted to outpatient wound care for physician visit with Abdulkadir Chavira MD. Dressing removed, wound cleansed and Emla cream applied per order. Patient assessed for changes in conditions, medications and medical history. Dr. Chavira at bedside accompanied by RN. Wound assessed, time out performed by MD/RN. Wound debrided as detailed in the physician progress/procedure note. Plan of care discussed with patient. Dressings placed per MD orders. Patient instructed on the signs and symptoms of infection and to call the Wound Center if any occur or to go to the ED if we are closed: Increased pain in wound Increase in drainage from the wound Redness in the skin surrounding the wound Bleeding from the wound Temperature of 101 or greater Pt instructed that they should not be disconnected from suction for more than 2 hours at a time. If they are not able to get the suction back on they need to remove the dressing and take all of the foam out of the wound, place hydrogel gauze on/in the wound, and change the dressing daily until someone can replace the dressing. Pt instructed to call the Wound Center or their Home Health Agency immediately if they notice a change in the color or amount of the fluid in the canister, their wound looks more red than usual or has a foul smell, the skin around their wound looks reddened or irritated, the dressing feels or appears loose, they experience pain or the alarm will not turn off. Pt instructed to call 911 or go to the ED if their canister fills rapidly with blood. Patient instructed that the weight of their body puts a large amount of pressure on their wounds. This pressure keeps the new tissue from growing and inhibits new blood vessels from forming. Explained that, if they continue to bear weight on a body part that has a wound, the time it takes to heal the wound increases, the wound may get worse or the wound may not heal at all. Patient verbalized understanding of all discharge instructions and plan of care and ambulated independently out to [facility] in stable condition with no sign or symptom of distress at time of discharge. Addendum: 12/19/18 at 1340 by Chrissy Kay RN Amended: Links added.
== END 2018-12-19 11:26 | disposition home or self-care (01) ==
LOC: WOUND CARE 09:30
PROVIDERS: ATTEND Surgery
DX: T81.89XD Other complications of procedures, not elsewhere classified, subsequent encounter (principal); L98.492 Non-pressure chronic ulcer of skin of other sites with fat layer exposed; I83.013 Varicose veins of right lower extremity with ulcer of ankle; L97.311 Non-pressure chronic ulcer of right ankle limited to breakdown of skin; L97.511 Non-pressure chronic ulcer of other part of right foot limited to breakdown of skin; J44.9 Chronic obstructive pulmonary disease, unspecified; F17.210 Nicotine dependence, cigarettes, uncomplicated; Z79.899 Other long term (current) drug therapy; Z89.029 Acquired absence of unspecified finger(s); Y83.8 Other surgical procedures as the cause of abnormal reaction of the patient, or of later complication, without mention of misadventure at the time of the procedure
CPT/HCPCS: 97597

== ENCOUNTER 2018-12-26 09:35 | Day surgery (SDC) | payer MEDICARE, MEDICAID ==
[2018-12-26] MEDS ORDERED: LIDOcaine/PRILOcaine 5gm cream TP ONE (09:57)
--- NOTE | 2018-12-26 11:15 | NUR ---
Patient ambulated independently from [facility] accompanied by his and was admitted to outpatient wound care for physician visit with Abdulkadir Chavira MD. Dressing removed, wound cleansed and Emla cream applied per order. Patient assessed for changes in conditions, medications and medical history. 1025 - Dr. Chavira at bedside accompanied by RN. Wound assessed, time out performed by MD/RN. Wound debrided and procedure performed as detailed in the physician progress/procedure note. Plan of care discussed with patient. Dressings placed per MD orders. Pt instructed that they should not be disconnected from suction for more than 2 hours at a time. If they are not able to get the suction back on they need to remove the dressing and take all of the foam out of the wound, place hydrogel gauze on/in the wound, and change the dressing daily until someone can replace the dressing. Pt instructed to call the Wound Center or their Home Health Agency immediately if they notice a change in the color or amount of the fluid in the canister, their wound looks more red than usual or has a foul smell, the skin around their wound looks reddened or irritated, the dressing feels or appears loose, they experience pain or the alarm will not turn off. Pt instructed to call 911 or go to the ED if their canister fills rapidly with blood. Patient instructed on the signs and symptoms of infection and to call the Wound Center if any occur or to go to the ED if we are closed: Increased pain in wound Increase in drainage from the wound Redness in the skin surrounding the wound Bleeding from the wound Temperature of 101 or greater Patient instructed that the weight of their body puts a large amount of pressure on their wounds. This pressure keeps the new tissue from growing and inhibits new blood vessels from forming. Explained that, if they continue to bear weight on a body part that has a wound, the time it takes to heal the wound increases, the wound may get worse or the wound may not heal at all. Patient and his verbalized understanding of all discharge instructions and plan of care and patient ambulated independently out to [facility] accompanied by his in stable condition with no sign or symptom of distress at time of discharge.
== END 2018-12-26 11:20 | disposition home or self-care (01) ==
LOC: WOUND CARE 09:35
PROVIDERS: ATTEND Surgery
DX: T81.89XD Other complications of procedures, not elsewhere classified, subsequent encounter (principal); L98.492 Non-pressure chronic ulcer of skin of other sites with fat layer exposed; I83.015 Varicose veins of right lower extremity with ulcer other part of foot; L97.511 Non-pressure chronic ulcer of other part of right foot limited to breakdown of skin; I83.013 Varicose veins of right lower extremity with ulcer of ankle; L97.311 Non-pressure chronic ulcer of right ankle limited to breakdown of skin; J44.9 Chronic obstructive pulmonary disease, unspecified; F17.210 Nicotine dependence, cigarettes, uncomplicated; Z79.899 Other long term (current) drug therapy; Z89.029 Acquired absence of unspecified finger(s); Y83.8 Other surgical procedures as the cause of abnormal reaction of the patient, or of later complication, without mention of misadventure at the time of the procedure
CPT/HCPCS: A6222; C5271; Q4102; A4456

== ENCOUNTER 2018-12-30 09:06 | Outpatient (CLI) | payer MEDICARE, MEDICAID ==
[~2018-12-30 09:06] MED LIST changes: -EPHE1TAB PO; -GUAI600T45 PO
--- NOTE | 2018-12-30 10:02 | NUR ---
Patient arrived safely into [facility] accompanied by spouse. Patient admitted to outpatient wound care clinic for nursing visit. Dressing and wound vac removed. Wound cleansed and patient assessed for changes in conditions, medications and medical history. Dressings and wound vac reapplied per physician orders. Patient is having surgery today by . Patient instructed on the signs and symptoms of infection and to call the Wound Center if any occur or to go to the ED if we are closed: Increased pain in wound Increase in drainage from the wound Redness in the skin surrounding the wound Bleeding from the wound Temperature of 101 or greater Patient instructed that the weight of their body puts a large amount of pressure on their wounds. This pressure keeps the new tissue from growing and inhibits new blood vessels from forming. Explained that, if they continue to bear weight on a body part that has a wound, the time it takes to heal the wound increases, the wound may get worse or the wound may not heal at all. Patient verbalized understanding of all discharge instructions and plan of care and ambulated independently out to [facility] in stable condition with no sign or symptom of distress at time of discharge. Addendum: 12/30/18 at 1007 by Chrissy Kay RN Amended: Links added.
== END 2018-12-30 09:50 | disposition home or self-care (01) ==
LOC: WOUND CARE 09:06
PROVIDERS: ATTEND Surgery
DX: T81.89XD Other complications of procedures, not elsewhere classified, subsequent encounter (principal); L98.492 Non-pressure chronic ulcer of skin of other sites with fat layer exposed; I83.013 Varicose veins of right lower extremity with ulcer of ankle; L97.311 Non-pressure chronic ulcer of right ankle limited to breakdown of skin; L97.511 Non-pressure chronic ulcer of other part of right foot limited to breakdown of skin; J44.9 Chronic obstructive pulmonary disease, unspecified; F17.210 Nicotine dependence, cigarettes, uncomplicated; Z79.899 Other long term (current) drug therapy; Z89.029 Acquired absence of unspecified finger(s); Y83.8 Other surgical procedures as the cause of abnormal reaction of the patient, or of later complication, without mention of misadventure at the time of the procedure
CPT/HCPCS: 88305; 97605; A4456

== ENCOUNTER 2018-12-30 09:55 | Day surgery (SDC) | payer MEDICARE, MEDICAID ==
[2018-12-29 14:53] LABS: BASOPHILS # (AUTO) 0.1 X10'3 (0-0.2); BASOPHILS % (AUTO) 1.1 % (0-1); EOSINOPHILS # (AUTO) 0.4 X10'3 (0-0.9); EOSINOPHILS % (AUTO) 6.5 % (0-6); LYMPHOCYTES # (AUTO) 1.2 X10'3 (1.1-4.8); MEAN CORPUSCULAR HEMOGLOBIN 30.7 PG (27.0-31.0); MEAN CORPUSCULAR VOLUME 93.2 FL (78-98); MEAN PLATELET VOLUME 6.5 FL (7.4-10.4); MONOCYTES # (AUTO) 0.7 X10'3 (0-0.9); MONOCYTES % (AUTO) 11.4 % (2-12); PRE OP HEMATOCRIT 32.1 % (42.0-52.0); PRE OP PLATELET COUNT 386 X10'3 (140-440); RED BLOOD COUNT 3.44 X10'6 (4.70-6.10); RED CELL DISTRIBUTION WIDTH 14.7 % (11.5-14.5)
[2018-12-29 15:01] LABS: PRE OP HEMOGLOBIN 10.6 g/dL (14.0-17.9)
[2018-12-29 15:06] LABS: ALBUMIN 3.4 G/DL (3.4-5.0); ALBUMIN/GLOBULIN RATIO 0.7 (1.1-1.5); ALKALINE PHOSPHATASE 81 IU/L (46-116); BLOOD UREA NITROGEN 17 MG/DL (7-18); BUN/CREATININE RATIO 17.7 (5.4-32.0); CALCIUM 8.9 MG/DL (8.5-10.1); CHLORIDE 101 MMOL/L (99-107); CREATININE 0.96 MG/DL (0.60-1.10); PRE OP ALT 15 U/L (30-65); PRE OP ANION GAP 9 (8-16); PRE OP AST 16 U/L (10-37); PRE OP BILIRUB, TOTAL 0.2 MG/DL (0.0-1.0); PRE OP GLUCOSE 96 MG/DL (70-104); PRE OP POTASSIUM 3.8 MMOL/L (3.4-5.1); PRE OP SODIUM 138 MMOL/L (135-145); TOTAL CARBON DIOXIDE 28.5 MMOL/L (24-32); TOTAL PROTEIN 8.1 G/DL (6.4-8.2); eGFR 77 ML/MIN
[2018-12-29 15:18] LABS: CLARITY,URINE SLIGHTLY CLOUDY (Clear); COLOR,URINE YELLOW (Yellow); GLUCOSE, URINE NEGATIVE (Neg); KETONES,URINE NEGATIVE (Neg); LEUKOCYTE ESTERASE ,URINE NEGATIVE (Neg); NITRITES, URINE NEGATIVE (Neg); OCCULT BLOOD,URINE SMALL (Neg); PH,URINE 6.5 (4.8-8.0); PROTEIN,URINE NEGATIVE (Neg); UROBILINOGEN,URINE 0.2 E.U/dL (0.2-1.0)
[2018-12-29 15:32] LABS: UA COLLECTION TYPE CLN CATCH MIDSTREAM
[2018-12-29 15:48] LABS: BACTERIA,URINE NONE SEEN /HPF (Neg); MUCUS STRANDS NONE SEEN /LPF (Neg); SQUAMOUS EPITHELIAL CELL,UR MANY /LPF (FEW); TRANSITIONAL EPI CELLS,URINE FEW /HPF; WBC,URINE 0-4 /HPF (0-4)
[2018-12-30] VITALS (10 sets, daily range): BP systolic 148–163; BP diastolic 72–94
[~2018-12-30] VITALS: Ht 182.9 cm; Wt 66.6 kg
[~2018-12-30 09:55] MED LIST changes: +ceFAZolin 2gm in dextrose, iso 100 ML IV ONE; +famotidine 20mg tablet PO ONE; +ringers solution, lacted 1,000 ML IV SCH
[2018-12-30] MEDS ORDERED: LIDOcaine 1% (10mg/ml) 2ml vial ONE (10:05)
[2018-12-30] MEDS ORDERED: albuterol 2.5 MG/3 ML nebule NEB ONE (10:25)
[2018-12-30] MEDS ORDERED: ringers solution, lacted 1,000 ML IV SCH (11:01)
[2018-12-30] MEDS ORDERED: ondansetron/PF 4mg/2ml inj IV PRN (11:05)
[2018-12-30] MEDS ORDERED: meperidine/PF 25mg/ml syringe IV PRN ×3 (11:05)
[2018-12-30] MEDS ORDERED: morphine 4 MG/ML inj SYRINge IV PRN ×2 (11:05)
[2018-12-30] MEDS ORDERED: proCHLORperazine 10 MG/2 ml inj IV PRN (11:05)
[2018-12-30] MEDS ORDERED: MIDAZolam 5mg/5ml vial ONE (11:48)
[2018-12-30] MEDS ORDERED: fentaNYL/PF 50MCG/1 ML 2ML syringe ONE (11:48)
[2018-12-30] MEDS ORDERED: LIDOcaine 1% 30ml preserv. free vial ONE (11:50)
[2018-12-30] MEDS ORDERED: BUPIVAcaine/PF 7.5mg/ml (0.75%) 10ml vial ONE (11:52)
[2018-12-30] MEDS ORDERED: povidone-iodine 10% topical ointment 28.4gm TP ONE (12:35)
--- NOTE | 2018-12-30 12:46 | NUR ---
Received from OR via , accompanied by Anesthesiologist DR. PATTERSON and report given by Anesthesiolgist. PATIENT ARRIVED VIA [facility], VSS CHARTED, A&O X4, LUNG SOUNDS CLEAR, 02 SAT 98 2L NC, DRESSING TO RIGHT FOOT WITH MARY CARMEN BANDAGE CDI, 20 GAUGE PIV NOTED TO LEFT WRIST, IVF IFNUSING. WV NOTED TO LEFT GROIN, PATIENT ARRIVED TO HOSPITAL WITH WV ALL READY IN PLACE FROM PREVIOUS PROCEDURE. RESTING IN BED, WILL CONTIUNE TO MONITOR.
--- NOTE | 2018-12-30 13:50 | NUR ---
PATIENT DISCHARGE CRITERIA MET, PATIENT AND VERBALIZED UNDERSTANDING. PIV DC'D, CATH TIP INTACT, SCD'S DC'D, RIGHT FOOT DRESSING CDI, WITH WEIGHT BEARING BOOT IN PLACE. PATIENT TO PERSONAL VEHICLE WITH ALL PERSONAL BELONGINGS ACCOMPANIED BY STAFF AND FAMILY.
== END 2018-12-30 13:46 | disposition home or self-care (01) ==
LOC: PAS 09:55
PROVIDERS: ATTEND Surgery
DX: I96 Gangrene, not elsewhere classified (principal); Z98.890 Other specified postprocedural states; F17.210 Nicotine dependence, cigarettes, uncomplicated; Z79.899 Other long term (current) drug therapy
CPT/HCPCS: 28820; 36415; 80053; 81001; 82948; 85025; 94640; 94760; A6222; A6449; J0690; J2250; J3010; J3490; A6446; A7000; J7120

== ENCOUNTER 2019-01-08 11:00 | Day surgery (SDC) | payer MEDICARE, MEDICAID ==
[~2019-01-08 11:00] MED LIST changes: -ceFAZolin 2gm in dextrose, iso 100 ML IV ONE; -famotidine 20mg tablet PO ONE; -ringers solution, lacted 1,000 ML IV SCH
[2019-01-08] MEDS ORDERED: LIDOcaine/PRILOcaine 5gm cream TP ONE (12:09)
[2019-01-08] MEDS ORDERED: mupirocin 2% ointment 22GM ONE (12:41)
--- NOTE | 2019-01-08 12:45 | NUR ---
Patient arrived via wheelchair accompanied by his from [facility] and was admitted to outpatient wound care for physician visit with Abdulkadir Chavira MD. Dressing removed, wound cleansed and Emla cream applied per order. Patient assessed for changes in conditions, medications and medical history. 1215 - Dr. Chavira at bedside accompanied by RN. Wound assessed, time out performed by MD/RN. Wound debrided as detailed in the physician progress/procedure note. Plan of care discussed with patient. Dressings placed per MD orders. Patient instructed on the signs and symptoms of infection and to call the Wound Center if any occur or to go to the ED if we are closed: Increased pain in wound Increase in drainage from the wound Redness in the skin surrounding the wound Bleeding from the wound Temperature of 101 or greater Patient instructed that the weight of their body puts a large amount of pressure on their wounds. This pressure keeps the new tissue from growing and inhibits new blood vessels from forming. Explained that, if they continue to bear weight on a body part that has a wound, the time it takes to heal the wound increases, the wound may get worse or the wound may not heal at all. Patient verbalized understanding of all discharge instructions and plan of care and exited via wheelchair accompanied by out to [facility] in stable condition with no sign or symptom of distress at time of discharge.
== END 2019-01-08 12:56 | disposition home or self-care (01) ==
LOC: WOUND CARE 11:00
PROVIDERS: ATTEND Surgery
DX: T81.89XD Other complications of procedures, not elsewhere classified, subsequent encounter (principal); L98.492 Non-pressure chronic ulcer of skin of other sites with fat layer exposed; I83.013 Varicose veins of right lower extremity with ulcer of ankle; L97.311 Non-pressure chronic ulcer of right ankle limited to breakdown of skin; L97.511 Non-pressure chronic ulcer of other part of right foot limited to breakdown of skin; J44.9 Chronic obstructive pulmonary disease, unspecified; F17.210 Nicotine dependence, cigarettes, uncomplicated; Z79.899 Other long term (current) drug therapy; Z89.029 Acquired absence of unspecified finger(s); Y83.8 Other surgical procedures as the cause of abnormal reaction of the patient, or of later complication, without mention of misadventure at the time of the procedure
CPT/HCPCS: 97597; A4456; A6021; A6212

== ENCOUNTER 2019-01-15 09:30 | Outpatient (CLI) | payer MEDICARE, MEDICAID ==
[2019-01-15] MEDS ORDERED: mupirocin 2% ointment 22GM ONE (11:35)
--- NOTE | 2019-01-15 12:15 | NUR ---
Patient arrived via wheelchair accompanied by Sandie from [facility] and was admitted to outpatient wound care for physician visit with Abdulkadir Chavira MD. Dressing removed, wound cleansed. Patient assessed for changes in conditions, medications and medical history. 1130 - Dr. Chavira at bedside accompanied by RN. Wound assessed by MD; orders written. Plan of care discussed with patient. Dressings placed per MD orders. Patient instructed on the signs and symptoms of infection and to call the Wound Center if any occur or to go to the ED if we are closed: Increased pain in wound Increase in drainage from the wound Redness in the skin surrounding the wound Bleeding from the wound Temperature of 101 or greater Patient instructed that the weight of their body puts a large amount of pressure on their wounds. This pressure keeps the new tissue from growing and inhibits new blood vessels from forming. Explained that, if they continue to bear weight on a body part that has a wound, the time it takes to heal the wound increases, the wound may get worse or the wound may not heal at all. Patient verbalized understanding of all discharge instructions and plan of care and exited via wheelchair accompanied by Sandie out to [facility] in stable condition with no sign or symptom of distress at time of discharge.
== END 2019-01-15 12:00 | disposition home or self-care (01) ==
LOC: WOUND CARE 09:30 → EDSTATUS 10:30 → WOUND CARE 12:00
PROVIDERS: ATTEND Surgery
DX: T81.89XD Other complications of procedures, not elsewhere classified, subsequent encounter (principal); L98.492 Non-pressure chronic ulcer of skin of other sites with fat layer exposed; I83.013 Varicose veins of right lower extremity with ulcer of ankle; L97.311 Non-pressure chronic ulcer of right ankle limited to breakdown of skin; L97.511 Non-pressure chronic ulcer of other part of right foot limited to breakdown of skin; J44.9 Chronic obstructive pulmonary disease, unspecified; F17.210 Nicotine dependence, cigarettes, uncomplicated; Z79.899 Other long term (current) drug therapy; Z89.029 Acquired absence of unspecified finger(s); Y83.8 Other surgical procedures as the cause of abnormal reaction of the patient, or of later complication, without mention of misadventure at the time of the procedure
CPT/HCPCS: A6021; A6206; A6212; A6446; G0463

== ENCOUNTER 2019-01-22 10:38 | Outpatient (CLI) | payer MEDICARE, MEDICAID ==
[2019-01-22] MEDS ORDERED: mupirocin 2% ointment 22GM ONE (12:31)
--- NOTE | 2019-01-22 12:50 | NUR ---
Patient ambulated independently accompanied by his from [facility] and was admitted to outpatient wound care for physician visit with Abdulkadir Chavira MD. Dressing removed, wound cleanser. Patient assessed for changes in conditions, medications and medical history. 1230 - Dr. Chavira at bedside accompanied by RN. Wound assessed by MD; orders written. Plan of care discussed with patient. Dressings placed per MD orders. Patient discharged from the wound clinic to follow up on an as needed basis. Patient instructed on the signs and symptoms of infection and to call the Wound Center if any occur or to go to the ED if we are closed: Increased pain in wound Increase in drainage from the wound Redness in the skin surrounding the wound Bleeding from the wound Temperature of 101 or greater Patient instructed that the weight of their body puts a large amount of pressure on their wounds. This pressure keeps the new tissue from growing and inhibits new blood vessels from forming. Explained that, if they continue to bear weight on a body part that has a wound, the time it takes to heal the wound increases, the wound may get worse or the wound may not heal at all. Patient verbalized understanding of all discharge instructions and plan of care and ambulated independently accompanied by out to [facility] in stable condition with no sign or symptom of distress at time of discharge.
== END 2019-01-22 12:36 | disposition home or self-care (01) ==
LOC: WOUND CARE 10:38
PROVIDERS: ATTEND Surgery
DX: T81.89XD Other complications of procedures, not elsewhere classified, subsequent encounter (principal); L98.492 Non-pressure chronic ulcer of skin of other sites with fat layer exposed; I83.013 Varicose veins of right lower extremity with ulcer of ankle; L97.311 Non-pressure chronic ulcer of right ankle limited to breakdown of skin; L97.511 Non-pressure chronic ulcer of other part of right foot limited to breakdown of skin; J44.9 Chronic obstructive pulmonary disease, unspecified; F17.210 Nicotine dependence, cigarettes, uncomplicated; Z79.899 Other long term (current) drug therapy; Z89.029 Acquired absence of unspecified finger(s); Y83.8 Other surgical procedures as the cause of abnormal reaction of the patient, or of later complication, without mention of misadventure at the time of the procedure
CPT/HCPCS: G0463

== ENCOUNTER 2019-11-11 09:20 | Outpatient (CLI) | payer MEDICARE, MEDICAID | END 2019-11-11 11:00 | disposition home or self-care (01) | LOC: WOUND CARE 09:20 → EDSTATUS 09:30 → WOUND CARE 11:00 | PROVIDERS: ATTEND Surgery | DX: I83.013 Varicose veins of right lower extremity with ulcer of ankle (principal); L97.311 Non-pressure chronic ulcer of right ankle limited to breakdown of skin; I83.015 Varicose veins of right lower extremity with ulcer other part of foot; L97.511 Non-pressure chronic ulcer of other part of right foot limited to breakdown of skin; M25.571 Pain in right ankle and joints of right foot; I70.212 Atherosclerosis of native arteries of extremities with intermittent claudication, left leg; G89.28 Other chronic postprocedural pain; J44.9 Chronic obstructive pulmonary disease, unspecified; M19.90 Unspecified osteoarthritis, unspecified site; I96 Gangrene, not elsewhere classified; F17.210 Nicotine dependence, cigarettes, uncomplicated; Z89.029 Acquired absence of unspecified finger(s); Z98.890 Other specified postprocedural states; Z79.899 Other long term (current) drug therapy | CPT/HCPCS: A4663; G0463 ==

== ENCOUNTER 2021-09-04 10:20 | Emergency (ER) | payer MEDICARE, MEDICAID ==
[~2021-09-04] VITALS: Ht 182.9 cm; Wt 70.0 kg
[2021-09-04 10:34] VITALS: BP 155/98
[2021-09-04 11:24] LABS: BASOPHILS # (AUTO) 0.1 X10'3 (0-0.2); BASOPHILS % (AUTO) 0.9 % (0-1); EOSINOPHILS # (AUTO) 0.2 X10'3 (0-0.9); EOSINOPHILS % (AUTO) 2.6 % (0-6); HEMOGLOBIN 14.2 g/dl (14.0-17.9); LYMPHOCYTES # (AUTO) 1.2 X10'3 (1.1-4.8); LYMPHOCYTES % (AUTO) 14.6 % (21-51); MEAN CORPUSCULAR HEMOGLOBIN 32.9 PG (27.0-31.0); MEAN CORPUSCULAR HGB CONC 34.7 g/dL (33.0-36.5); MEAN CORPUSCULAR VOLUME 94.9 FL (78-98); MONOCYTES # (AUTO) 0.9 X10'3 (0-0.9); NEUTROPHILS # (AUTO) 5.9 X10'3 (1.8-7.7); NEUTROPHILS % (AUTO) 70.9 % (42-75); PLATELET COUNT 249 X10'3 (140-440); RED BLOOD COUNT 4.32 X10'6 (4.70-6.10); RED CELL DISTRIBUTION WIDTH 12.9 % (11.5-14.5); WHITE BLOOD COUNT 8.3 X10'3 (4.5-11.0)
[2021-09-04 11:38] LABS: ALANINE AMINOTRANSFERASE 19 U/L (12-78); ALBUMIN 3.9 G/DL (3.4-5.0); ALBUMIN/GLOBULIN RATIO 0.8 (1.1-1.5); ALKALINE PHOSPHATASE 97 IU/L (46-116); ANION GAP 10 (8-16); ASPARTATE AMINO TRANSFERASE 17 U/L (10-37); BILIRUBIN,TOTAL 0.7 MG/DL (0.1-1.0); BLOOD UREA NITROGEN 15 MG/DL (7-18); BUN/CREATININE RATIO 11.9 (5.4-32.0); CALCIUM 8.5 MG/DL (8.5-10.1); CHLORIDE 102 MMOL/L (99-107); CREATININE 1.26 MG/DL (0.60-1.10); GLUCOSE 91 MG/DL (70-104); POTASSIUM 4.1 MMOL/L (3.5-5.1); SODIUM 141 MMOL/L (135-145); TOTAL CARBON DIOXIDE 28.9 MMOL/L (24-32); TOTAL PROTEIN 8.8 G/DL (6.4-8.2); eGFR 56 ML/MIN
[2021-09-04] MEDS ORDERED: PRED20TA PO (11:49)
[2021-09-04] MEDS ORDERED: AZIT-103 PO (11:49)
== END 2021-09-04 12:00 | disposition home or self-care (01) ==
LOC: ER 10:21
DX: J20.9 Acute bronchitis, unspecified (principal); J43.9 Emphysema, unspecified; Z79.2 Long term (current) use of antibiotics; Z79.899 Other long term (current) drug therapy
CPT/HCPCS: 36415; 71045; 80053; 85025; 99284

== ENCOUNTER 2025-05-08 15:08 | Emergency (ER) | payer MEDICARE, MEDICAID ==
[~2025-05-08] VITALS: Ht 182.9 cm; Wt 64.5 kg
[2025-05-08 15:48] LABS: MEAN PLATELET VOLUME 7.6 FL (7.4-10.4); RED CELL DISTRIBUTION WIDTH 16.3 % (11.5-14.5)
[2025-05-08 16:08] LABS: CREATININE 1.89 MG/DL (0.60-1.10); PRO BRAIN NATRIURETIC PEPTIDE 2539 PG/ML (0-450); TOTAL CARBON DIOXIDE 24.8 MMOL/L (24-32); eCRCL 29 ML/MIN; eGFR 35 ML/MIN
--- NOTE | 2025-05-08 16:15 | RADIOLOGY REPORT ---
DI CHEST,TWO VIEWS, HISTORY: COUGH, SOB COMPARISON: None None TECHNICAL DATA: 2 view of the chest was obtained. FINDINGS: Lines and tubes: None Cardiomediastinal silhouette: normal Pulmonary vasculature: normal Lung expansion: normal Lung airspace: Left apical consolidation. Lung interstitium: normal Pleura: Bibasilar scarring. Pneumothorax: no Bones: Unremarkable Other: no IMPRESSION: Left apical consolidation could be a pulmonary nodule, atelectasis, pneumonia.
--- NOTE | 2025-05-08 17:46 | Physician Documentation ---
History of Present Illness ~ Chief Complaint: Cough Stated Complaint: PNEUMONIA Time Seen by MD: 17:41 Source: patient, family Mode of Arrival: POV Exam Limitations: no limitations HPI 79-year-old male with history of emphysema COPD does have daily and as-needed inhalers and continues to smoke. Patient also has history of chronic kidney disease does see his doctor routinely. Does have an appointment with his doctor for follow up on this cough that he has had for 3 days next week. Patient denies any chest pain or fevers. Patient states his cough is productive. Patient does have history of pneumonia Medication Reconciliation Allergies: Coded Allergies: No Known Allergies (Unverified , 05/08/25) Scheduled Clopidogrel Bisulfate (Plavix), 75 MG PO DAILY, (Reported) Fluticasone/Vilanterol (Breo Ellipta 200-25 Mcg INH), 1 PUFF INH DAILY, (Reported) Gabapentin (Gabapentin), 1 CAP PO TID, (Reported) Hydrocodone Bit/Acetaminophen ([place] 10-325 Tablet), 1 TAB PO Q6H, (Reported) Ropinirole HCl (Requip), 1 TAB PO HS, (Reported) Scheduled PRN Ipratropium/Albuterol Sulfate (Combivent Respimat Inhal [place]), 2 PUFFS IH Q4H PRN for SOB or wheezing, (Reported) Past Medical History Past Medical History: *CARDIOVASCULAR*, Asthma, COPD, Emphysema, Pneumonia, Chronic Kidney Disease Past Surgical History: noncontributory Smoking Status: Current every day smoker Alcohol Use: None Drug Use: none Lives In: Home Review of Systems All Other Systems at this time: Reviewed and Negative Respiratory: Reports: see HPI Physical Exam Vital Signs: RN Vital Signs have been reviewed: Yes, Temperature: 98.9, Source: Oral, Heart Rate: 73, Respiratory Rate: 18, BP: 124/76, Pulse Oximetry: 96, Weight: 64.550 Physical Exam General: Alert, no apparent distress. HEENT: PERRL, EOMI, no injection, moist mucous membranes. Neck: Full range of motion. Respiratory: Rhonchi to left lobe posteriorly scattered wheezes throughout. 98% on room air. Speaking in full sentences no respiratory distress noted productive cough noted during examination Chest: No accessory muscle use. Cardiovascular: Regular rate and rhythm, no murmurs. Extremities: Normal range of motion, no deformity. Neurologic: Oriented x4. Psychiatric: Normal mood and affect. Skin: Normal color, warm and dry. No edema, no ecchymosis. Progress Results/Orders Results/Orders Vital Signs 05/08/25 05/08/25 05/08/25 15:13 17:11 17:43 Temp 98.9 Pulse 71 73 Resp 18 B/P (MAP) 100/61 124/76 (92) Pulse Ox 96 96 Laboratory Tests Test 05/08/25 15:37 05/08/25 15:38 Sodium Level 132 L Potassium Level 4.6 Chloride Level 100 Carbon Dioxide Level 24.8 Anion Gap 7 L Blood Urea Nitrogen 21 H Creatinine 1.89 H Estimated GFR/1.73 m2 35 BUN/Creatinine Ratio 11.1 Glucose Level 109 H Lactic Acid Level 1.3 Calcium Level 8.5 Pro-B-Type Natriuretic Peptide 2539 H Albumin 3.6 Chemistry Comments White Blood Count 7.1 Red Blood Count 3.44 L Hemoglobin 10.9 L Hematocrit 33.1 L Mean Corpuscular Volume 96.1 Mean Corpuscular Hemoglobin 31.7 H Mean Corpuscular Hemoglobin Concent 33.0 Red Cell Distribution Width 16.3 H Platelet Count 172 Mean Platelet Volume 7.6 Neutrophils (%) (Auto) 75.1 H Lymphocytes (%) (Auto) 11.2 L Monocytes (%) (Auto) 10.1 Eosinophils (%) (Auto) 2.7 Basophils (%) (Auto) 0.9 Neutrophils # (Auto) 5.3 Lymphocytes # (Auto) 0.8 L Monocytes # (Auto) 0.7 Eosinophils # (Auto) 0.2 Basophils # (Auto) 0.1 CBC Comment Microbiology Date/Time Source Procedure Growth Status 05/08/25 15:37 Blood Arm Right Blood Culture - Preliminary NEGATIVE (LESS THAN 24 HOURS) Resulted Medical Decision Making Findings X-ray shows possible pneumonia patient has emphysema COPD and continues to smoke. Patient has productive cough x3 days but good primary care follow up. Discussed potentially being admitted for pneumonia patient desires to go home. Patient's family member is at bedside and is there to take care of patient as well as take him to his an appointment next week. Discussed importance of not smoking. As risks and benefits of discharge Departure Time of Disposition: 18:01 Disposition: 01 HOME / SELF CARE / HOMELESS Impression: Primary Impression: Pneumonia Additional Impression: COPD (chronic obstructive pulmonary disease) with emphysema Condition: Stable Discharge Instructions: Cough, Adult Additional Instructions: Take antibiotics as prescribed and follow up with primary care in 2-3 days r eturn to the emergency department if any chest pain or shortness of breath occurs. Referrals: NO PRIMARY CARE PROVIDER (PCP) Prescriptions Guaifenesin (Guaifenesin) 400 Mg Tablet 1 TAB PO Q8H for cough for 5 Days, #15 TAB 0 Refills Prov: ELIDIA WAGONER NP 05/08/25 Azithromycin (Zithromax) 250 Mg Tablet 1 TAB PO UD for 5 Days, #6 TAB 2 the first day followed by 1 for days 2-5 Prov: ELIDIA WAGONER NP 05/08/25 Education Educated: Patient, Family Educated regarding: diagnosis, treatment, need for follow up Signature Scribe Signature: No scribe Attestation: The note accurately reflects work and decisions made by me.Elidia CRAWFORD 05/08/25 18:03 ELIDIA WAGONER NP May 08, 2025 17:46
[2025-05-08] MEDS ORDERED: GUAI400T92 PO (18:03)
[2025-05-08] MEDS ORDERED: AZIT250T89 PO (18:03)
[2025-05-08 18:15] VITALS: BP 134/81; PULSE 77; RESP 18; TEMP 98.9; O2SAT 96
== END 2025-05-08 18:16 | disposition home or self-care (01) ==
LOC: ER 15:09
DX: J18.9 Pneumonia, unspecified organism (principal); J44.0 Chronic obstructive pulmonary disease with (acute) lower respiratory infection; J43.9 Emphysema, unspecified; N18.9 Chronic kidney disease, unspecified; F17.200 Nicotine dependence, unspecified, uncomplicated
CPT/HCPCS: 36415; 71046; 80048; 83605; 83880; 85025; 87040; 99284; J7030